=== PATIENT | female | born 1955 | race Caucasian/White ===

== ENCOUNTER 2019-06-25 08:21 | Outpatient (CLI) | payer BC, SELFPAY ==
--- NOTE | ~2019-06-25 | MM_ITS ---
EXAMINATION: MM screening kaden BI w laila HISTORY: Screening mammogram TECHNIQUE: Craniocaudal and mediolateral oblique 3-D tomosynthesis images were obtained and synthetic 2-D images were generated. CAD analysis was submitted and interpreted. COMPARISON: No prior mammogram is available for comparison at this institution. BREAST PARENCHYMAL COMPOSITION: There are scattered areas of fibroglandular density. FINDINGS: There is a benign-appearing intramammary lymph node in the upper outer quadrant of the left breast. There is no evidence of suspicious mass, calcification, or architectural distortion to sugge st malignancy in either breast. There has been no suspicious interval change. IMPRESSION: 1. No mammographic evidence of malignancy. 2. Recommend routine screening mammography in one year. BI-RADS Category 2: Benign finding(s). Reviewed, dictated and finalized at location A. EDITED LEGAL SECRETARY
== END 2019-06-25 08:22 | disposition home or self-care (01) ==
PROVIDERS: PCP Internal Medicine; Visit Provider Internal Medicine
DX: Z12.31 Encounter for screening mammogram for malignant neoplasm of breast (principal)
CPT/HCPCS: 77063; 77067

== ENCOUNTER → 2022-07-12 13:12 | Outpatient (CLI) | payer MEDICARE, SELFPAY ==
--- NOTE | ~2022-07-12 | DEXA_ITS ---
Bone Density Report Name: HEVER NICOLE Age: 67 Sex: Female Ethnicity: White Date of : 1955 Indication: postmenopausal; screening for osteoporosis; hysterectomy; Referring Provider: GUME, KOFI Study: Bone densitometry was performed. Exam Date: July 12, 2022 Accession number: [id number] Bone Density: Region BMD T-score Z-score Classification AP Spine (L1-L4) 0.933 -1.0 0.7 Normal Femoral Neck (Left) 0.708 -1.3 0.3 Osteopenia Total Hip (Left) 0.961 0.2 1.4 Normal Femoral Neck (Right) 0.712 -1.2 0.3 Osteopenia Total Hip (Right) 0.888 -0.4 0.8 Normal Total Hip Mean 0.925 -0.1 1.1 Normal World Health Organization criteria for BMD impression classify patients as: Normal (T-score at or above -1.0), Osteopenia (T-score between -1.0 and -2.5), or Osteoporosis (T-score at or below -2.5). 10-year Fracture Risk(1): Major Osteoporotic Fracture 7.5% Hip Fracture 0.6% Reported Risk Factors: [place] (), Neck BMD=0.712, BMI=38.1 (1) FRAX(R) Version 3.08. Fracture probability calculated for an untreated patient. Fracture probability may be lower if the patient has received treatment. Clinical Information Provided by Patient: Has the following medical conditions: Hysterectomy Patient maximum height was 65 Menopause Age: 37 No regular weight bearing exercise Drinks caffeinated beverages Onset of menses at age 18 Number of children 0 Impression: The patient has low bone mass, based on the Left Femoral Neck T-score. The patient has an estimated ten-year risk of hip fracture of 0.6% and an estimated ten-year risk of major fracture of 7.5%, based on the WHO FRAX algorithm. Discussion: BONE DENSITY IS LOW AT ONE OR MORE SKELETAL SITES. This patient's lowest T-score is low at one or more skeletal sites. It meets the World Health Organization's (WHO) criteria for ?low bone mass? (T-score between -1.0 and -2.5). The patient's 10-year risk of fracture as calculated by FRAX is less than the threshold where pharmacological therapy is recommended by the National Osteoporosis Foundation (NOF). However, all treatment decisions require clinical judgment and consideration of individual patient factors, including patient preferences, comorbidities, previous drug use, risk factors not captured in the FRAX model (e.g., frailty, falls, vitamin D deficiency, increased bone turnover, interval significant decline in bone density) and possible under or overestimation of fracture risk by FRAX. The patient should follow a healthful lifestyle (good nutrition with adequate calcium and vitamin D, and appropriate weight-bearing exercise). Follow-Up: Consider repeating this study in 2 to 3 years to reassess this patient's status, or sooner if there is some new clinical indication. Reported by: YESSICA
--- NOTE | ~2022-07-12 | MM_ITS ---
EXAMINATION: MM screening kaden BI w laila HISTORY: Screening mammogram TECHNIQUE: Craniocaudal and mediolateral oblique 3-D tomosynthesis images were obtained and synthetic 2-D images were generated. CAD analysis was submitted and interpreted. COMPARISON: June 25, 2019 bilateral screening mammogram BREAST PARENCHYMAL COMPOSITION: The breasts are almost entirely fatty. FINDINGS: There is no evidence of suspicious mass, calcification, or architectural distortion to sugg est malignancy in either breast. There has been no suspicious interval change. IMPRESSION: 1. No mammographic evidence of malignancy. 2. Recommend routine screening mammography in one year. BI-RADS Category 1: Negative Reviewed, dictated and finalized at location A.
== END ==
PROVIDERS: PCP Internal Medicine; Visit Provider Nurse Practitioner Family
DX: Z12.31 Encounter for screening mammogram for malignant neoplasm of breast (principal); Z78.0 Asymptomatic menopausal state; M85.852 Other specified disorders of bone density and structure, left thigh; M85.851 Other specified disorders of bone density and structure, right thigh
CPT/HCPCS: 77063; 77067; 77080

== ENCOUNTER 2024-02-10 10:00 | Outpatient (CLI) | payer MEDICARE, SELFPAY ==
--- NOTE | ~2024-02-10 | MM_ITS ---
EXAMINATION: MM screening kaden BI w laila HISTORY: Screening TECHNIQUE: Craniocaudal and mediolateral oblique 3-D tomosynthesis images were obtained and synthetic 2-D images were generated. CAD analysis was submitted and interpreted. COMPARISON: Comparison to multiple prior studies sequentially, with oldest reviewed study dated 06/25. BREAST PARENCHYMAL COMPOSITION: Not dense: There are scattered areas of fibroglandular density. FINDINGS: There is no evidence of suspicious mass, calcification, or architectural distortion to sugg est malignancy in either breast. There has been no suspicious interval change. IMPRESSION: 1. No mammographic evidence of malignancy. 2. Recommend routine screening mammography in one year. BI-RADS Category 1: Negative Reviewed, dictated and finalized at location B.
== END 2024-02-10 10:01 | disposition home or self-care (01) ==
LOC: ANHIMG 10:06
PROVIDERS: Visit Provider Internal Medicine
DX: Z12.31 Encounter for screening mammogram for malignant neoplasm of breast (principal)
CPT/HCPCS: 77063; 77067

== ENCOUNTER 2025-02-13 10:28 | Outpatient (CLI) | payer MEDICARE, SELFPAY ==
--- NOTE | ~2025-02-13 | MM_ITS ---
EXAMINATION: MM screening kaden BI w laila HISTORY: Screening TECHNIQUE: Craniocaudal and mediolateral oblique 3-D tomosynthesis images were obtained and synthetic 2-D images were generated. CAD analysis was submitted and interpreted. COMPARISON: No prior mammogram is available for comparison at this institution. BREAST PARENCHYMAL COMPOSITION: There are scattered areas of fibroglandular density. FINDINGS: There is no evidence of suspicious mass, calcification, or architectural distortion to suggest malignancy. There has been no suspicious interval change. IMPRESSION: 1. No mammographic evidence of malignancy. Recommend routine screening mammography in one year. BI-RADS Category 2: Benign finding(s) Reviewed, dictated and finalized at location Q. IMPRESSION: 1. No mammographic evidence of malignancy. Recommend routine screening mammogra phy in one year. BI-RADS Category 2: Benign finding(s)
--- OUTSIDE RECORDS SUMMARY | 2025-02-13 12:21 | XMS_ITS | Clinical Summary ---
Author Organization [facility] Address [address] [place] [address] Care Team Providers Care No Experience Name Role Phone Parviz Dias MD Primary Care Provider [phone] Allergies No known active allergies Medications betamethasone dipropionate (DEL-BETA) 0.05 % cream Apply topically 2 (two) times a day 30 g 1 5 Active amLODIPine (NORVASC) 2.5 mg tablet Take 1 tablet by mouth once daily 90 tablet 1 5 Active lisinopril-hydroC HLOROthiazide (ZESTORETIC) 20-12.5 mg per tablet Take 2 tablets by mouth once daily 180 tablet 1 5 Active Active Problems Problem Noted Date Diagnosed Date Routine general medical exam ination at a health care facility 04/08/2022 Assessment & Plan (04/08/2022 11:45 AM RESIDENTIAL CASE MANAGER): Due for following vaccinations: Tdap Shigrix (2 doses) PCV20 (pneumonia) Bivalent COVID-19 booster Due for mammogram/DEXA Needs colonoscopy-would like to wait to decide Labs today Hypertension, essential 04/08/2022 Assessment & Plan (07/19/2024 3:56 PM CDT): BP at target continue current Rx Assessment & Plan (05/20/2022 1:40 PM RESIDENTIAL CASE MANAGER): BMP today Is on lisinopril/HCTZ 20/12.5mg daily Will get home monitor and log and bring to next visit as BP has been near/at goal at Ophthalmology Assessment & Plan (04/08/2022 11:48 AM RESIDENTIAL CASE MANAGER): Initiate lisinopril/HCTZ 20/12.5mg Low sodium diet Encouraged to increase activity for weight loss IFG (impaired fasting glucose) 04/08/2022 Assessment & Plan (07/19/2024 3:56 PM CDT): Thanks stable doing well Assessment & Plan (04/08/2022 11:48 AM RESIDENTIAL CASE MANAGER): A1C 5.9% Reviewed A1C meaning and goal, handout given Encouraged to eliminate sugar sweetened beverages Resolved Problems Problem Noted Date Diagnosed Date Resolved Date Cholelithiasis 01/30/2020 04/08/2022 Overview (01/30/2020): Added automatically from request for surgery [id number] Encounters Date Type Department Care Team Description 02/07/2025 Results Follow-Up [facility] [address] [place] [address] [phone] Parviz Dias MD CBC with auto differential, Comprehensive metabolic panel, TSH, Lipid panel 02/06/2025 6:08 PM CDT - 02/06/2025 11:59 PM CDT Hospital Encounter [facility] [address] [place] [address] Type 2 diabetes mellitus without complication, without long-term current use of insulin (HCC); Visit for screening mammogram; Hypertension, essential; IFG (impaired fasting glucose) Discharge Disposition: Discharge to home or self care 02/06/2025 3:00 PM CDT Office Visit [facility] [address] [place] [phone] Parviz Dias MD Hypertension, essential (Primary Dx); Type 2 diabetes mellitus without complication, without long-term current use of insulin (HCC); Visit for screening mammogram; IFG (impaired fasting glucose) from Last 3 Months Immunizations Immunization Administration Dates Next Due Tdap 02/14/2006 Surgical History Surgery Date Site/Laterality Comments HYSTERECTOMY 05/02/1996 - 05/01/1997 Hysterectomy-had complications TONSILLECTOMY 7 years old Tonsillectomy OTHER SURGICAL HISTORY 05/02/1996 - 05/01/1997 endometriosis: laporoscopy OTHER SURGICAL HISTORY 05/02/1996 - 05/01/1997 Right repair ureter from Hysterectomy GALLBLADDER SURGERY 05/02/2019 - 05/01/2020 Medical History Medical History Date Comments Endometritis endometriosis Hypertension Family History Medical History Relation Name Comments Stroke Mother Relation Name Status Comments Mother Social History Tobacco Use Types Packs/Day Years Used Date Smoking Tobacco: Former Cigarettes 6 - 01/29/2005 Smokeless Tobacco: Never Tobacco Cessation:Counseling Given: Not Answered Alcohol Use Standard Drinks/Week Comments Yes 0 (1 standard drink = 0.6 oz pur e alcohol) occasional AUDIT-C Answer Date Recorded Q1: How often do you have a drink containing alc ohol? Monthly or less 04/08/2022 Q2: How many drinks containi ng alcohol do you have on a typical day when you are drinking? 1 or 2 04/08/2022 Q3: How often do you have si x or more drinks on one occasion? Never 04/08/2022 PHQ-2 Answer Date Recorded PHQ-2 Total Score (If total score is 3 or more points, staff should administer the PHQ-9) 0 11/01/2023 Comments Unknown Sex and Gender Information Value Date Recorded Sex Assigned at Not on file Legal Sex Female 11:41 PM RESIDENTIAL CASE MANAGER Gender Identity Not on file Sexual Orientation Not on file Obstetrics History Last Filed Vital Signs Vital Sign Reading Time Taken Comments Blood Pressure 157/83 02/06/2025 2:54 PM CDT Pulse 98 02/06/2025 2:54 PM CDT Temperature 36.4 C (97.5 F) 02/21/2020 10:35 AM CDT Respiratory Rate 9 02/21/2020 12:00 PM CDT Oxygen Saturation 98% 05/20/2022 1:20 PM RESIDENTIAL CASE MANAGER Inhaled Oxygen Concentration - - Weight 105.7 kg (233 lb) 02/06/2025 2:54 PM CDT Height 170.2 cm (5' 7) 02/06/2025 2:54 PM CDT Body Mass Index 36.49 02/06/2025 2:54 PM CDT Plan of Treatment Health Maintenance Due Date Last Done Comments Albumin Creatinine Ratio, Urine 1955 Hepatitis C Screening 1955 Dilated Eye Exam 1955 Foot Exam 1955 Hepatitis B Screening 1975 DTaP/Tdap/Td Vaccine (2 - Td or Tdap) 02/15/2016 02/14/2006 eGFR 04/27/2024 04/27/2023, 10/01, 05/20/2022, Additional history exists Depression Screening 10/31/2024 11/01/2023, 04/08/20 22 Fall Risk Assessment 10/31/2024 11/01/2023, 04/08/2022, 02/14/2020 Well Visit 65+ 10/31/2024 11/01/2023, 04/08/2022 Covid-19 Vaccine ( season) 2024 05/04/2021, 08/19/2020, 07/11/2020 Breast Cancer Screening-Mammogram 02/09/2025 02/10/2024, 07/12/2022 Osteoporosis Screening-Bone Density Scan 07/19/2025 07/20/2022, 07/12/2022 Postponed from 07/20/2024 (Patient declined, but will receive in the future) Pneumococcal vaccine 65+ (1 of 2 - PCV) 07/19/2025 Postponed from 1976 (Patient declined, but will receive in the future) Zoster Vaccine (1 of 2) 07/19/2025 Post poned from 2007 (Patient declined, but will receive in the future) Hemoglobin A1C 08/07/2025 02/06/2025, 032 , 11/01/2023, Additional history exists Influenza Vaccine (#1) 2025 Postp oned from 12/31/2024 (Patient declined, but will receive in the future) Lipid Panel 02/06/2026 02/06/2025, 2 , 04/27/2023, Additional history exists Colon Cancer Screening-Colonoscopy 11/19/2033 11/20/2023 Procedures Procedure Name Priority Date/Time Associated Diagnosis Comments LIPID PANEL Routine 02/06/2025 3:47 PM CDT Type 2 diabetes mellitus without complication, without long-term current use of insulin ([facility]) Visit for screening mammogram Hypertension, essential IFG (impaired fasting glucose) TSH Routine 02/06/2025 3:47 PM CDT Type 2 diabetes mellitus without complication, without long-term current use of insulin ([facility]) Visit for screening mammogram Hypertension, essential IFG (impaired fasting glucose) COMPREHENSIVE METABOLIC PANEL Routine 02/06/2025 3:47 PM CDT Type 2 diabetes mellitus without complication, without long-term current use of insulin ([facility]) Visit for screening mammogram Hypertension, essential IFG (impaired fasting glucose) CBC WITH AUTO DIFFERENTIAL Routine 02/06/2025 3:47 PM CDT Type 2 diabetes mellitus without complication, without long-term current use of insulin ([facility]) Visit for screening mammogram Hypertension, essential IFG (impaired fasting glucose) URINALYSIS AND REFLEX TO MICROSCOPIC AND CULTURE Routine 02/06/2025 3:47 PM CDT Type 2 diabetes mellitus without complication, without long-term current use of insulin ([facility]) Visit for screening mammogram Hypertension, essential IFG (impaired fasting glucose) POCT HEMOGLOBIN A1C Routine 02/06/2025 2 :54 PM CDT Type 2 diabetes mellitus without complication, without long-term current use of insulin ([facility]) BASIC METABOLIC PANEL Routine 04/27/2023 2:50 PM RESIDENTIAL CASE MANAGER Mixed hyperlipidemia IFG (impaired fasting glucose) Essential hypertension from Last 3 Months or Most Recently Relevant to Health Maintenance Results * (ABNORMAL) CBC with auto differential (02/06/2025 3:47 PM CDT) WBC 11.0(H) 3.5 - 10.0 K/uL [facility] RBC 4.66 3.50 - 5.50 M/uL [facility] Hemoglobin 13.2 11.5 - 16.5 g/dL [facility] Hematocrit 39.7 35.0 - 55.0 % [facility] MCV 85.1 75.0 - 100.0 fL [facility] MCH 28.40 25.00 - 35.00 pg [facility] MCHC 33.40 31.00 - 38.00 g/dL [facility] RDW 13.3 11.0 - 16.0 % [facility] Platelets 240 140 - 400 K/uL [facility] MPV 11.6(H) 8.0 - 11.0 fL [facility] Granulocyte, Absolute 8.5(H) 1.2 - 8.0 K/uL [facility] Lymphocyte, Absolute 1.9 0.5 - 5.0 K/uL [facility] Monocyte, Absolute 0.6 0.1 - 1.5 K/uL [facility] Granulocyte, Percentage 77.5 35.0 - 80.0 % [facility] Lymphocyte, Percentage 17.6 15.0 - 50.0 % [facility] Monocyte, Percentage 4.9 2.0 - 15.0 % [facility] Blood 02/06/2025 3:47 PM CDT 02/06/2025 3:58 PM CDT Parviz Dias MD LAB BLOOD ORDERABLES Final Re sult Performing Organization Address [facility]/ZIP Co de Phone Number [facility] [employer] [address] [place] [address] * TSH (02/06/2025 3:47 PM CDT) TSH 1.12 0.27 - 4.20 uIU/mL [facility] Blood 02/06/2025 3:47 PM CDT 02/06/2025 3:58 PM CDT Parviz Dias MD LAB BLOOD ORDERABLES Final Re sult Performing Organization Address [facility]/ZIP Co de Phone Number [facility] [address] [place] [address] * (ABNORMAL) Lipid panel (02/06/2025 3:47 PM CDT) Triglyceride 168(H) 0 - 150 mg/dL [facility] Cholesterol 174 0 - 200 mg/dL [facility] HDL 39(L) >45 mg/dL [facility] LDL-Calculated 101 mg/dL [facility] CHOL/HDL Risk Ratio 4 Ratio [facility] LDL/HDL Risk Ratio 3 Ratio [facility] Blood 02/06/2025 3:47 PM CDT 02/06/2025 3:58 PM CDT us Parviz Dias MD LAB BLOOD ORDERABLES Final Re sult [facility] [address] [phone] * Comprehensive metabolic panel (02/06/2025 3:47 PM CDT) Glucose 93 74 - 200 mg/dL [facility] BUN 18 18 - 23 mg/dL [facility] Creatinine 1.10 0.70 - 1.30 mg/dL [facility] BUN/Creat Ratio 16 Ratio [facility] Bilirubin, Total 0.2 0.0 - 1.2 mg/dL [facility] AST (SGOT) 14 0 - 32 U/L [facility] ALT (SGPT) 19 10 - 35 U/L [facility] Alkaline phosphatase 101 35 - 104 U/L [facility] Calcium 9.8 8.8 - 10.2 mg/dL [facility] Sodium 140 135 - 145 mEq/L [facility] Potassium 4.1 3.5 - 5.1 mEq/L [facility] Chloride 102 98 - 107 mEq/L [facility] CO2 28.7 22.0 - 32.0 mEq/L [facility] Anion Gap 10 3 - 12 mEq/L [facility] Total Protein 6.6 6.0 - 8.1 g/dL [facility] Albumin 4.4 3.5 - 5.2 g/dL [facility] Globulin 2.3 g/dL [facility] Albumin/Globulin 1.9 Ratio [facility] eGFR 54.75 [facility] Blood 02/06/2025 3:47 PM CDT 02/06/2025 3:58 PM CDT Parviz Dias MD LAB BLOOD ORDERABLES Final Re sult [facility] [address] [phone] * (ABNORMAL) Urinalysis reflex to microscopic and culture Urine (02/06/2025 3:47 PM CDT) Color, ur Straw Yellow Clarity, ur Clear Clear [facility] Specific gravity, ur 1.024 1.003 - 1.030 [facility] pH, urine 6.5 [facility] Comment: Interpretive Data U rine pH is affected by diet, medications, systemic acid-base disturbances, and renal tubular function. pH may affect urinary stone formation. For example, urine pH below 6.0 may help reduce the tendency for calcium phosphate stones and pH greater than 6.0 may reduce the tendency for uric acid stone formation. Source: [facility] Current Interpretive Data was last revised on 2017 Protein, ur ql Negative Negative [facility] Glucose, ur ql Negative Negative [facility] Ketones, ur Negative Negative [facility] Bilirubin, ur Negative Negative [facility] Blood, ur Negative Negative [facility] Urobilinogen, ur 2.0(A) <2.0 mg/dL [facility] Nitrite, ur Negative Negative [facility] Leukocyte esterase, ur Negative Negative [facility] UA reflex comment Reflex conditions for microscopic UA and culture not met. [facility] Urine 02/06/2025 3:47 PM CDT 02/06/2025 6:50 PM CDT Parviz Dias MD LAB MICROBIOLOGY - GENERAL OR DERABLES Final Result [facility] Department [place] [address] * (ABNORMAL) POCT hemoglobin A1c (02/06/2025 2:54 PM CDT) Hemoglobin A1C, POC 6.3(A) 4.0 - 5.6 % Blood 02/06/2025 2:54 PM CDT Parviz Dias MD POINT OF CARE TEST ORDERABLES Final Result * (ABNORMAL) Basic metabolic panel (04/27/2023 2:50 PM RESIDENTIAL CASE MANAGER) Glucose 103(H) 70 - 99 mg/dL [facility] - 01 BUN 15 8 - 27 mg/dL [facility] - 01 Creatinine, Serum 0.95 0.57 - 1.00 mg/dL [facility] - 01 eGFR 66 >59 mL/min/1.7 3 [facility] - 01 BUN/creat ratio 16 12 - 28 [facility] - 01 Sodium 141 134 - 144 mmol/L [facility] - 01 Potassium, sr 4.1 3.5 - 5.2 mmol/L [facility] - 01 Chloride 99 96 - 106 mmol/L [facility] - 01 CO2 24 20 - 29 mmol/L [facility] - 01 Calcium 9.9 8.7 - 10.3 mg/dL [facility] - 01 Blood 04/27/2023 2:50 PM RESIDENTIAL CASE MANAGER 04/27/2023 Narrative [facility] - 04/28/2023 8:12 AM RESIDENTIAL CASE MANAGER Performed at: 01 - [facility] [address] [id number] Workers Compensation Adjuster: João Jacobo PhD, Phone: [phone] Parviz Dias MD LAB BLOOD ORDERABLES Final Re sult [facility] - 01 from Last 3 Months or Most Recently Relevant to Health Maintenance Insurance [facility] [employer] MED[employer] [id number] [employer] G[employer] [id number] [place] [address] [employer] MED[employer]ARE GOLD Care Teams No Experience Relationship Specialty Start Date End Date Parviz Dias MD PCP - General Internal Medicine 12/31/20
--- OUTSIDE RECORDS SUMMARY | 2025-02-13 12:21 | XMS_ITS | Encounter Summary ---
Author Organization [facility] Address [address] [place] [address] Care Team Providers Care Pocket Closer Name Role Phone Parviz Dias MD Primary Care Provider [phone] Encounter Details Date Type Department Care Team (Latest Contact Info) Description 02/07/2025 Results Follow-Up [facility] [address] [facility] [address] [place] [phone] Parviz Dias MD [facility] [address] [place] [address] CBC with auto differential, Comprehensive metabolic panel, TSH, Lipid panel Social History Tobacco Use Types Packs/Day Years Used Date Smoking Tobacco: Former Cigarettes 1 30 1 976 - 01/29/2005 Smokeless Tobacco: Never Alcohol Use Standard Drinks/Week Comments Yes 0 [...] on file Legal Sex Female 11:41 PM ADON Gender Identity Not on file Sexual Orientation Not on file documented as of this encounter Plan of Treatment Not on file documented as of this encounter Visit Diagnoses Not on filedocumented in this encounter Care Teams Pocket Closer Relationship Specialty Start Date End Date Parviz Dias MD PCP - General Internal Medicine 12/31/20 documented as of this encounter
== END 2025-02-13 10:29 | disposition home or self-care (01) ==
LOC: ANHFOHIMG 10:31
PROVIDERS: PCP Internal Medicine; Visit Provider Internal Medicine
DX: Z12.31 Encounter for screening mammogram for malignant neoplasm of breast (principal)
CPT/HCPCS: 77063; 77067